=== PATIENT | male | born 1985 | race Caucasian/White ===

== ENCOUNTER 2018-02-18 12:48 | Emergency (ER) | payer OTHER ==
[~2018-02-18] VITALS: Ht 177.8 cm; Wt 107.7 kg
[2018-02-18 12:50] VITALS: BP 138/90; TEMP 99.2
[2018-02-18 13:35] VITALS: PULSE 102
== END 2018-02-18 13:39 | disposition home or self-care (01) ==
LOC: COL.ER 12:48
DX: S01.511A Laceration without foreign body of lip, initial encounter (principal); Y04.0XXA Assault by unarmed brawl or fight, initial encounter; Y92.410 Unspecified street and highway as the place of occurrence of the external cause